=== PATIENT | female | born 1990 | race African-American/Black ===

== ENCOUNTER 2017-05-16 01:25 | Inpatient (IN) | payer OTHER ==
[2017-05-16] MEDS ORDERED: AMPICILLIN - 2 GM in SODIUM CHLORIDE 100 ML IVPB ONE (02:00)
[2017-05-16] MEDS ORDERED: TUBERCULIN PPD 5 TU/0.1ML SYRINGE (IN PATIENT USE ONLY) ID ONE (02:27)
[2017-05-16 02:41] LABS: BASOPHIL 0.8 % (0-2.0); EOSINOPHIL 2.3 % (0-4.5); MCH 32.5 pg (25.7-33.7); MCHC 34.8 g/dl (32.0-36.0); MEAN CELL VOLUME 93.3 fl (80-96); MEAN PLT VOLUME 10.6 fl (7.5-11.1); NEUTROPHILS 68.8 % (42.8-82.8); PLATELET COUNT 183 K/MM3 (134-434); RDW 13.2 % (11.6-15.6); WHITE BLOOD COUNT 17.9 K/mm3 (4.0-10.0)
[2017-05-16 02:59] LABS: ACTIVATED PTT 30.1 SECONDS (26.9-34.4)
[2017-05-16 03:05] LABS: ANION GAP 9 (8-16); CALCIUM 8.4 mg/dL (8.5-10.1); CO2 24 mmol/L (21-32); CREATININE 0.5 mg/dL (0.55-1.02); GLUCOSE,RANDOM 101 mg/dL (74-106)
[2017-05-16 03:51] VITALS: BMI 31.0
[2017-05-16] MEDS ORDERED: IBUPROFEN 600 MG TABLET (FP) PO PRN (05:09)
[2017-05-16] MEDS ORDERED: BISACODYL 10 MG SUPP.RECT RC PRN (05:09)
[2017-05-16] MEDS ORDERED: WITCH HAZEL 50% (TUCKS) 40 PAD/JAR PAD TP PRN (05:09)
[2017-05-16] MEDS ORDERED: oxyCODONE HCL 5 MG TABLET PO PRN (05:09)
[2017-05-16] MEDS ORDERED: BENZOCAINE 20% 57 GM BOTTLE TP PRN (05:09)
[2017-05-16] MEDS ORDERED: BENZOCAINE 28 GM HEMORRHOIDAL OINTMENT TP PRN (05:09)
[2017-05-16] MEDS ORDERED: METHYLERGONOVINE MALEATE 0.2 MG/1 ML AMP IM PRN (05:09)
[2017-05-16] MEDS ORDERED: ACETAMINOPHEN 325 MG TABLET (FP) PO PRN (05:09)
--- NOTE | 2017-05-16 05:12 | PN ---
Progress Note (short form) - Note Progress Note: 230 pm cx 5 cm 80 vx -3 mi, fhr cat 1, ,bloody show, sono 34 weeksgestation , efw 5 lb
--- NOTE | 2017-05-16 05:13 | PN ---
Delivery - Delivery Vaginal Delivery: Spontaneous Episiotomy/Laceration: None (no complication) Delivery, Single - Feeding Plan Initial Plan: Elected not to breastfeed exclusively throughout hospitalization
--- NOTE | 2017-05-16 05:13 | PN ---
Progress Note (short form) - Note Progress Note: 455 am, full 100 vx 0 arom, clear fluid , pushing, fhr cat 1
[2017-05-16] MEDS ORDERED: D5W-LR W/ 20 UNITS OXYTOCIN 1,000 ML IV SCH (05:15)
[2017-05-16 05:32] LABS: ARTERIAL BLD GAS O2 SATURATION 49.3 % (90-98.9); ARTERIAL BLOOD GAS BASE EXCESS 0.8 meq/l (-2-2); ARTERIAL BLOOD GAS HCO3 26.9 meq/L (22-26); ARTERIAL BLOOD GAS pH 7.34 (7.35-7.45)
[2017-05-16 05:36] LABS: PT. ON O2? NO
[2017-05-16 05:37] LABS: ARTERIAL BLOOD GAS PO2 21.8 mmHg (80-100)
[2017-05-16 05:38] LABS: VENOUS BLOOD GAS HCO3 27.5 meq/L (19-25); VENOUS PH 7.34 (7.32-7.42)
[2017-05-16 06:03] LABS: URINE MARIJUANA THC POSITIVE ng/ml (CUTOFF=50)
--- NOTE | 2017-05-16 10:19 | HP ---
Past Medical History - Primary Care Physician PCP:: Javy Simmons - Admission Chief Complaint: 34 weeks . previous c/s , labor History of Present Illness: 26 yo f g 12 [id number] 34 weeks with 3 previous c/s 2 34 weeks,c/o of contraction and vaginal spotting, for past 2 days. no rom, no clots, cx 5 cm 80 vx -3, mi, bloody show , fhr cat 1contraction felt q 3 min History Source: Patient Limitations to Obtaining History: No Limitations - Past Medical History Pulmonary: Yes: Pneumonia (& pulmonary edema 04/07 admission ,post c/s icu admission) ...: 12 ...Para: 5 ...Term: 5 ...: 0 ...Spon : 2 ...Induced : 4 ...Multiple Gestation: 0 ...LMP: 10/10/16 ... Weeks Gestation by Dates: 31.0 ...EDC by Dates: 07/17/17 ...EDC by Sono: 06/23/17 Heme/Onc: Yes: Anemia (h/o blood transfusion), Sickle Cell Trait (neg.), Other ( Protein s deff) Infectious Disease: Yes: STD's (h/o chlamydia treated 2010) - Past Surgical History Past Surgical History: Yes: (x3( 2007, 2008, 2010)) Hx Myomectomy: No Hx Transabdominal Cerclage: No - Smoking History Smoking history: Current every day smoker Have you smoked in the past 12 months: Yes Aproximately how many cigarettes per day: 10 - Alcohol/Substance Use Hx Alcohol Use: No History of Substance Use: reports: None (declines) - Social History Usual Living Arrangement: Yes: With Spouse History of Recent Travel: No Home Medications - Allergies Allergies/Adverse Reactions: Allergies Allergy/AdvReac Type Severity Reaction Status Date / Time No Known Allergies Allergy Verified 05/24/15 23:30 - Home Medications Home Medications: Ambulatory Orders Acetaminophen [Tylenol .Regular Strength -] 650 mg PO Q3H PRN #20 tablet Ferrous Sulfate [Feosol] 325 mg PO BID ud 09/19/15 Ibuprofen [Motrin -] 200 mg PO Q4H PRN #0 tablet 09/19/15 Vitamins (Sjr) - 1 tab PO DAILY tablet 09/19/15 Review of Systems - Review of Systems Eyes: reports: No Symptoms HENT: reports: No Symptoms Neck: reports: No Symptoms Cardiovascular: reports: No Symptoms Respiratory: reports: No Symptoms Gastrointestinal: reports: Abdominal Pain Genitourinary: reports: Vaginal Bleeding Breasts: reports: No Symptoms Reported Musculoskeletal: reports: No Symptoms Integumentary: reports: No Symptoms Neurological: reports: No Symptoms Endocrine: reports: No Symptoms Hematology/Lymphatic: reports: No Symptoms Physical Exam - Maternity Vital Signs: Vital Signs Temperature 98.1 F 05/16/17 08:32 Pulse Rate 65 05/16/17 08:32 Respiratory Rate 20 05/16/17 08:32 Blood Pressure 128/63 05/16/17 08:32 O2 Sat by Pulse Oximetry (%) 99 05/16/17 06:00 Constitutional: Yes: Well Nourished, No Distress, Calm Eyes: Yes: WNL, Conjunctiva Clear, EOM Intact HENT: Yes: WNL, Atraumatic, Normocephalic Neck: Yes: WNL, Supple, Trachea Midline Cardiovascular: Yes: WNL, Regular Rate and Rhythm Breast(s): Yes: WNL - Abdominal Exam/OB Fundal Height: 36 Number of Fetuses: Single Presentation: Vertex Contractions: Yes Regularity: Irregular Intensity: Mod/Strong Monitor Mode: External Heart Rate Location: [facility] Category: I Accelerations: Non-Uniform Decelerations: None - Vaginal Exam/OB Vaginal Bleediing: Bloody Show Speculum Exam: Yes Dilatation (cm): 5 cm Effacement (%): 80 Amniotic Membrane Status: Bulging Presentation: Vertex/Position Station: -3 - Physical Exam Musculoskeletal: Yes: WNL Extremities: Yes: WNL Edema: Yes Edema: LLE: Trace, RLE: Trace Deep Tendon Reflex Grade: Normal +2 Psychiatric: Yes: Alert - Labs Lab Results: CBC, BMP 05/16/17 02:20 05/16/17 02:20 Hemorrhage Risk Assessment - Risk Factors Medium Risk Factors: Yes: Prior , uterine surgery,or multiple laparotomies Risk Score: 3 Risk Level: High Risk Problem List - Problems (1) with 34 completed weeks gestation Code(s): Z3A.34 - 34 WEEKS GESTATION OF (2) Labor established Code(s): KEK6920 - (3) Previous delivery affecting , antepartum Code(s): O34.219 - MATERNAL CARE FOR UNSP TYPE SCAR FROM PREVIOUS DEL (4) Multiparity Code(s): Z64.1 - PROBLEMS RELATED TO MULTIPARITY Assessment/Plan close monitoring of heart. discussed , risks explained, repeat c/s rba explained , advise trial of . monitor vaginal bleeding if in excess needs c/s
[2017-05-16] MEDS: FERROUS SO4 325 MG TABLET (FP) PO SCH ×3 (10:21→21:33)
[2017-05-16] MEDS: PRENATAL VITAMINS W/ FOLIC ACID TABLET (FP) PO SCH (10:21)
[2017-05-17 08:28] VITALS: BP 120/51; PULSE 63; TEMP 97.8
--- NOTE | 2017-05-17 09:28 | DS ---
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: Vital Signs Temperature 97.8 F 05/17/17 08:27 Pulse Rate 63 05/17/17 08:27 Respiratory Rate 18 05/17/17 08:27 Blood Pressure 120/51 05/17/17 08:27 O2 Sat by Pulse Oximetry (%) 99 05/16/17 06:00 Constitutional: Yes: Well Nourished, No Distress, Calm Eyes: Yes: WNL, Conjunctiva Clear, EOM Intact HENT: Yes: WNL, Atraumatic, Normocephalic Neck: Yes: WNL, Supple, Trachea Midline Cardiovascular: Yes: WNL, Regular Rate and Rhythm Respiratory: Yes: WNL, Regular, CTA Bilaterally Gastrointestinal: Yes: WNL ...Rectal Exam: Yes: WNL Renal/: Yes: WNL External Genitalia: Yes: Normal ....Post : Yes: Uterus firm, Uterus non-tender, Slight lochia rubra Breast(s): Yes: WNL Musculoskeletal: Yes: WNL Extremities: Yes: WNL Integumentary: Yes: WNL Neurological: Yes: WNL, Alert, Oriented ...Motor Strength: WNL Psychiatric: Yes: WNL, Alert, Oriented Labs: CBC, BMP 05/16/17 02:20 05/16/17 02:20 Delivery - Delivery Vaginal Delivery: Spontaneous (no complication) Type of Anesthesia: None Episiotomy/Laceration: None (no complication) EBL (cc): 300 Delivery, Single - Stages of Labor Date 1st Stage Initiatied: 05/15/17 Time 1st Stage Initiated: 23:50 Date 2nd Stage Initiated: 05/16/17 Time 2nd Stage Initiated: 04:55 Date of Delivery: 05/16/17 Time of Delivery: 04:59 Time Placenta Delivered: 05:00 Placenta: Yes: Spontaneous - 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 Present: No Gender: Male Weight: 4 lb 14 oz Position: Left, OA Total Hours ROM (Hrs/Mins): 4 minutes - 1 Minute Total Score: 7 5 Minutes Total Score: 7 - [place] Feeding Plan Initial Plan: Elected not to breastfeed exclusively throughout hospitalization Remarks - Remarks Remarks: Discharge Summary Reason For Visit: ADMIT LABOR Current Active Problems Labor established (Acute) Multiparity (Acute) with 34 completed weeks gestation (Acute) Previous delivery affecting , antepartum (Acute) Procedures: Principal: Hospital Course: uneventful, no complication Condition: Good - Instructions Diet, Activity, Other Instructions: regular diet, no intercourse, follow up [facility] care 4 weeks Referrals: Javy Simmons MD [Staff Physician] - Disposition: HOME - Home Medications Comprehensive Discharge Medication List: Ambulatory Orders Vitamins (Sjr) - 1 tab PO DAILY tablet 09/19/15 Albuterol Sulfate Inhaler - [Ventolin HFA Inhaler -] 1 puff PRN 05/16/17 Ibuprofen [Motrin -] 600 mg PO QID #28 tablet 05/17/17
[2017-05-17] MEDS: PRENATAL VITAMINS W/ FOLIC ACID TABLET (FP) PO SCH (09:31)
[2017-05-17] MEDS: FERROUS SO4 325 MG TABLET (FP) PO SCH (09:33)
[2017-05-17] MEDS ORDERED: SENNOSIDES/DOCUSATE COMBO (SENNA PLUS) TABLET (UD) PO PRN (22:00)
== END 2017-05-17 10:00 | disposition home or self-care (01) | DRG 560 ==
LOC: JDEL 01:25 → JLDR 01:55 → J3N 07:53
PROVIDERS: ADMIT Obstetrics & Gynecology; ATTEND Obstetrics & Gynecology
PROC: 10E0XZZ Delivery of Products of Conception, External Approach (ICD-10-PCS; principal; 2017-05-16)
DX: O99.02 Anemia complicating childbirth (principal); O75.89 Other specified complications of labor and delivery; F17.210 Nicotine dependence, cigarettes, uncomplicated; Z3A.34 34 weeks gestation of pregnancy; Z37.0 Single live birth; Z64.1 Problems related to multiparity
CPT/HCPCS: 36415; 36600; 59409; 76816-TC; 76830-TC; 80048; 80307; 82803; 85025; 85610; 85730; 86593; 86850; 86900; 86901

== ENCOUNTER 2018-02-03 16:00 | Inpatient (IN) | payer OTHER ==
[2018-02-03 17:04] VITALS: BMI 28.0
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
[2018-02-03] MEDS ORDERED: P-EPHED 60MG/TRIPROLIDI 2.5MG TABLET PO PRN (20:52)
[2018-02-03] MEDS ORDERED: LOPERAMIDE HCL 2 MG CAPSULE PO PRN (20:52)
[2018-02-03] MEDS ORDERED: ACETAMINOPHEN 325 MG TABLET (FP) PO PRN (20:52)
[2018-02-03] MEDS ORDERED: guaiFENesin/D-METHORPHAN HB 10 ML UNIT-DOSE CUPS PO PRN (20:52)
[2018-02-03] MEDS ORDERED: NICOTINE POLACRILEX 2 MG GUM BUC PRN (20:52)
[2018-02-03] MEDS ORDERED: MAGNESIUM CITRATE 300 ML BOTTLE PO PRN (20:52)
[2018-02-03] MEDS ORDERED: MAG HYDROX/AL HYDROX/SIMETH 30 ML UNIT-DOSE CUP PO PRN (20:52)
[2018-02-03] MEDS ORDERED: IBUPROFEN 400 MG TABLET (FP) PO PRN (20:52)
[2018-02-03] MEDS ORDERED: MENTHOL/PHENOL 1 EACH UD MM PRN (20:52)
[2018-02-03] MEDS ORDERED: MAGNESIUM HYDROX 2400MG/30ML ORAL SUSPENSION 30 ML CUP PO PRN (20:52)
[2018-02-03] MEDS ORDERED: hydrOXYzine PAMOATE 50 MG CAPSULE (FP) PO PRN (20:52)
[2018-02-03] MEDS ORDERED: MELATONIN 5 MG TABLETS PO PRN (22:00)
[2018-02-03] MEDS ORDERED: TUBERCULIN PPD 5 TU/0.1ML VIAL ID ONE (22:12)
[2018-02-03] MEDS ORDERED: COLLOIDAL OATMEAL 1 BAR EACH TP PRN (22:17)
[2018-02-03] MEDS ORDERED: ALBUTEROL SO4 18 GM HFA INHALER IH PRN (22:45)
[2018-02-03] MEDS ORDERED: ALBUTEROL SO4 0.083% IH SOL 2.5 MG/3 ML VIAL.NEB. NEB PRN (22:46)
[2018-02-03 23:46] LABS: URINE APPEARANCE CLEAR; URINE BILIRUBIN NEGATIVE (<2.0 mg/dL); URINE COLOR YELLOW; URINE GLUCOSE (UA) NEGATIVE (NEGATIVE); URINE KETONE NEGATIVE (NEGATIVE); URINE LEUK ESTERASE NEGATIVE (NEGATIVE); URINE NITRITE NEGATIVE (NEGATIVE); URINE PROTEIN NEGATIVE (NEGATIVE)
[2018-02-03] MEDS: THIAMINE HCL 100 MG TABLET (FP) PO SCH (23:46)
[2018-02-03 23:51] LABS: EPI CELLS RARE /HPF (FEW); URINE MUCUS RARE
[2018-02-04 07:21] VITALS: BP 143/92; PULSE 48; TEMP 97.5
[2018-02-04] MEDS: NICOTINE 14 MG/24 HOURS TOPICAL PATCH TD SCH (10:16)
[2018-02-04] MEDS: PRENATAL VITAMINS W/ FOLIC ACID TABLET (FP) PO SCH (10:16)
[2018-02-04] MEDS: CITALOPRAM HYDROBROMIDE 10 MG TABLET (FP) PO SCH (10:49)
[2018-02-04] MEDS: MINERAL OIL/PETROLAT/WATER TOPICAL CREAM 113 GM JAR TP SCH ×2 (10:50→21:42)
--- NOTE | 2018-02-04 11:46 | EKG ---
Test Reason : Blood Pressure : / mmHG Vent. Rate : 044 BPM Atrial Rate : 044 BPM P-R Int : 156 ms QRS Dur : 090 ms QT Int : 502 ms P-R-T Axes : 026 053 047 degrees QTc Int : 429 ms MARKED SINUS BRADYCARDIA ABNORMAL ECG WHEN COMPARED WITH ECG OF 04-APR-2011 08:22, NO SIGNIFICANT CHANGE WAS FOUND Confirmed by ZANDRA CLEMENT MD ([id number]) on 02/04/2018 11:46:15 AM Referred By: Confirmed By:ZANDRA CLEMENT MD
--- NOTE | 2018-02-04 13:51 | PN ---
[facility] Progress Note Note: Patient with abnormal EKG with sinus juan manuel 44 bpm, asymptomatic. Patient refused labs this AM, reports she is afraid of needles. Denies , SOB, vertigo, CP or paresthesia. Last Vital Signs Temp Pulse Resp BP Pulse Ox 97.5 F L 48 L 18 143/92 02/04/18 07:20 02/04/18 07:20 02/04/18 07:20 02/04/18 07:20 Laboratory Last Values Urine Color Yellow 02/03/18 Unknown Urine Appearance Clear 02/03/18 Unknown Urine pH 5.0 (5.0-8.0) D 02/03/18 Unknown Ur Specific [place] 1.015 (1.001-1.035) 02/03/18 Unknown Urine Protein Negative (NEGATIVE) 02/03/18 Unknown Urine Glucose (UA) Negative (NEGATIVE) 02/03/18 Unknown Urine Ketones Negative (NEGATIVE) 02/03/18 Unknown Urine Blood 2+ (NEGATIVE) H 02/03/18 Unknown Urine Nitrite Negative (NEGATIVE) 02/03/18 Unknown Urine Bilirubin Negative (<2.0 mg/dL) 02/03/18 Unknown Urine Urobilinogen 2.0 mg/dL (0.2-1.0) H 02/03/18 Unknown Ur Leukocyte Esterase Negative (NEGATIVE) 02/03/18 Unknown Urine WBC (Auto) 1 /hpf (3-5) 02/03/18 Unknown Urine RBC (Auto) 1 /hpf (0-3) 02/03/18 Unknown Ur Epithelial Cells Rare /HPF (FEW) 02/03/18 Unknown Urine Mucus Rare 02/03/18 Unknown A/P Patient, AOx3 in no apparent distress Normal HR and Rhythm No adventitious breath sounds Skin intact, no edema - Sinus Bradycardia Plan : Patient was informed of the importance to comply in needed blood work Repeat EKG Patient currently on her menses U/A + blood Draw labs and U/A in the AM Increase fluids Continue to monitor
--- NOTE | 2018-02-04 16:12 | EKG ---
Test Reason : Blood Pressure : / mmHG Vent. Rate : 044 BPM Atrial Rate : 044 BPM P-R Int : 156 ms QRS Dur : 092 ms QT Int : 494 ms P-R-T Axes : -12 047 037 degrees QTc Int : 422 ms MARKED SINUS BRADYCARDIA ABNORMAL ECG WHEN COMPARED WITH ECG OF 04-FEB-2018 07:51, NO SIGNIFICANT CHANGE WAS FOUND Confirmed by ZANDRA CLEMENT MD ([id number]) on 02/04/2018 4:12:13 PM Referred By: Confirmed By:ZANDRA CLEMENT MD
[2018-02-04] MEDS: THIAMINE HCL 100 MG TABLET (FP) PO SCH (21:39)
[2018-02-04] MEDS ORDERED: QUEtiapine FUMARATE 25 MG TABLET (FP) PO SCH (22:00)
[2018-02-05] MEDS: CITALOPRAM HYDROBROMIDE 10 MG TABLET (FP) PO SCH (10:41)
[2018-02-05] MEDS: MINERAL OIL/PETROLAT/WATER TOPICAL CREAM 113 GM JAR TP SCH (10:41)
[2018-02-05] MEDS: NICOTINE 14 MG/24 HOURS TOPICAL PATCH TD SCH (10:41)
[2018-02-05] MEDS: PRENATAL VITAMINS W/ FOLIC ACID TABLET (FP) PO SCH (11:07)
[2018-02-05] MEDS ORDERED: DOCUSATE SODIUM 100 MG CAPSULE (FP) PO PRN (11:43)
--- NOTE | 2018-02-05 13:06 | PN ---
[facility] Progress Note Note: Notified by RN that patient refused labs to be drawn this morning. Manager [employer] went to speak to patient in room. Door was closed and when sheet writer knocked on door patient yelled "GO AWAY!". Manager [employer] did not open door and proceeded to Dr. Salvador office and spoke to psychiatrist regarding patients behaviour. Patient came to Psychiatrists office with sheet writer present. Patient became angry and belligerent when questioned about refusing labs. She stated "I do not have to have my labs drawn. I don't give a fuck!! I will leave then." Patient then got up from chair and slammed the office door shut. Patient administratively discharged.
--- NOTE | 2018-02-05 13:08 | PN ---
[facility] Progress Note Note: Patient became agressive,hostile,violent while asking to give medical staff opportunity to do blood work.She was very offensive,highly irritable,couldnt give the real reason for her hostility.Patient will be discharge administratively due to inappropriate behavior,violation of the unit's rules and regulations.Patient will continue to address her issues on outpatient basis.She is stable for discharge today,not danger for self,others.
== END 2018-02-05 13:02 | disposition left against medical advice (07) | DRG 776 ==
LOC: YASAS 16:00 → Y3E 19:14
PROVIDERS: ADMIT Psychiatry & Neurology Psychiatry; ATTEND Psychiatry & Neurology Psychiatry
PROC: HZ2ZZZZ Detoxification Services for Substance Abuse Treatment (ICD-10-PCS; principal; 2018-02-03)
DX: F12.20 Cannabis dependence, uncomplicated (principal); F17.210 Nicotine dependence, cigarettes, uncomplicated; F34.1 Dysthymic disorder; F43.10 Post-traumatic stress disorder, unspecified; J45.909 Unspecified asthma, uncomplicated; D64.9 Anemia, unspecified; R00.1 Bradycardia, unspecified; G47.00 Insomnia, unspecified; Z86.19 Personal history of other infectious and parasitic diseases; F91.8 Other conduct disorders; Z91.19 Patient's noncompliance with other medical treatment and regimen
CPT/HCPCS: 81003; 81015; 93005; 93010